=== PATIENT | female | born 1960 | race Caucasian/White ===

== ENCOUNTER 2023-01-20 12:24 | Day surgery (SDC) | payer BC ==
[~2023-01-20] VITALS: Ht 154.9 cm; Wt 63.1 kg
[~2023-01-20 12:24] MED LIST: COLESTID PO; ESTRADIOL (TWI1 EAC1; EUTHYROX88 MCG PO; METFORMIN ER1000 M2 PO; SERT50 PO; TRULICITY0.75 MG/01 SQ
[2023-01-20] MEDS ORDERED: OMEP20ER (12:43)
[2023-01-20 13:53] VITALS: BP 117/62
== END 2023-01-20 13:56 | disposition home or self-care (01) ==
LOC: ORSCSDS 12:24
PROVIDERS: Surgery
PROC: 0DJD8ZZ Inspection of Lower Intestinal Tract, Via Natural or Artificial Opening Endoscopic (ICD-10-PCS; principal; 2023-01-20 13:45)
DX: R19.7 Diarrhea, unspecified (principal); K58.0 Irritable bowel syndrome with diarrhea; Z79.899 Other long term (current) drug therapy
CPT/HCPCS: 82947; 88305; J2704; J7120

== ENCOUNTER → 2024-04-22 | Outpatient (CLI) | payer BC ==
[~2024-04-22] MED LIST changes: +OMEP20ER
[2024-04-22 15:50] LABS: Alanine Aminotransfer (ALT/SGP 40 U/L (12-78); Albumin, Blood 3.9 g/dL (3.4-5.0); Albumin/Globulin Ratio 1.2 (0.8-1.8); Alk Phos 123 U/L (50-136); Anion Gap 11 mmol/L (3-11); Aspartate Aminotrans (AST/SGOT 20 U/L (12-37); Bilirubin, Total 0.3 mg/dL (0.1-1.0); Blood Urea Nitrogen 11 mg/dL (8-24); Bun/Creatinine Ratio 28.6 (12.0-20.0); CHOL/HDL RATIO 5.4; CO2, Blood 27 mmol/L (21-32); Calcium, Blood 9.1 mg/dL (8.5-10.1); Chloride, Blood 103 mmol/L (98-108); Cholesterol 254 mg/dL (50-200); Creatinine, Blood 0.38 mg/dL (0.40-1.00); Globulin, Blood 3.2 g/dL (2.2-4.0); Glomerular Filtration Rate 113 (60-); Glucose, Blood 140 mg/dL (70-99); HDL Cholesterol 47 mg/dL (>39); LDL/HDL RATIO 3.2; Low Density Lipoprotein Chol 150 mg/dL (0-110); Potassium, Blood 3.9 mmol/L (3.5-5.5); Sodium, Blood 137 mmol/L (136-145); Total Protein, Blood 7.1 g/dL (6.4-8.2); Triglycerides 285 mg/dL (30-160); Very Low Density Lipoprot Chol 57 mg/dL (6-32)
[2024-04-22 16:06] LABS: Creatinine, Urine Random 86.1 mg/dL (27.00-270.00); Microalb/Creat Ratio UR, Rand 11.847 mg/g (0.000-30.000); Microalbumin, Random Urine 10.2 mg/L (0.000-20.000)
== END ==
LOC: LAB 13:40 → LAB SHORT 13:40
PROVIDERS: Internal Medicine
DX: E11.69 Type 2 diabetes mellitus with other specified complication (principal); E03.9 Hypothyroidism, unspecified; E78.2 Mixed hyperlipidemia
CPT/HCPCS: 80053; 80061; 82043; 82570; 83036; 84443

== ENCOUNTER 2025-01-06 22:36 | Observation (INO) | payer BC ==
[~2025-01-06] VITALS: Ht 154.9 cm; Wt 67.9 kg
[2025-01-06] MEDS ORDERED: OXYC10TA19 PO (22:56)
[2025-01-06] MEDS ORDERED: TAMS.4ER PO (22:56)
[2025-01-06] MEDS ORDERED: IBUP200 PO (22:57)
[2025-01-06] MEDS ORDERED: COLE625 PO (22:57)
[2025-01-06] MEDS ORDERED: VITAMIN D5000 UNIT PO (22:57)
[2025-01-06] MEDS ORDERED: EUTHYROX88 MCG PO (22:57)
[2025-01-06] MEDS ORDERED: COENZYME Q-10200 M1 PO (22:57)
[2025-01-06] MEDS ORDERED: ACET325 PO (22:58)
[2025-01-06] MEDS ORDERED: LIVALO2 MG PO (22:59)
[2025-01-06 23:01] LABS: BASOPHILS ABSOLUTE AUTO 0.02 K/mm3 (0.00-0.23); BASOPHILS PERCENT AUTO 0 % (0-2); EOSINOPHILS ABSOLUTE AUTO 0.06 K/mm3 (0.00-0.68); EOSINOPHILS PERCENT AUTO 1 % (0-6); Hematocrit 27.5 % (33.0-51.0); Hemoglobin 9.4 g/dL (11.5-16.0); IMMATURE GRAN ABSOLUTE AUTO 0.05 K/mm3 (0.00-0.10); IMMATURE GRAN PERCENT AUTO 1 % (0-1); LYMPHOCYTES ABSOLUTE AUTO 1.43 K/mm3 (0.84-5.20); LYMPHOCYTES PERCENT AUTO 14 % (21-46); MONOCYTES ABSOLUTE AUTO 0.63 K/mm3 (0.16-1.47); MONOCYTES PERCENT AUTO 6 % (4-13); Mean Corpuscular HGB Conc 34.2 g/dL (31.5-36.5); Mean Corpuscular Volume 86 fL (80-100); NEUTROPHILS ABSOLUTE AUTO 8.16 K/mm3 (1.96-9.15); NEUTROPHILS PERCENT AUTO 79 % (41-73); NRBC ABSOLUTE 0.00 K/mm3 (0.00-0.02); NRBC Auto 0.0 /100 WBC (0.0-0.2); Platelet Count 226 K/mm3 (150-400); RDW Coefficient Variation 12.5 % (11.7-14.2); RDW Standard Deviation 39.5 fL (35.1-46.3)
[2025-01-06 23:25] LABS: Alanine Aminotransfer (ALT/SGP 21.0 U/L (12-78); Albumin, Blood 2.9 g/dL (3.4-5.0); Albumin/Globulin Ratio 0.8 (0.8-1.8); Anion Gap 9.0 mmol/L (3-11); Aspartate Aminotrans (AST/SGOT 25.0 U/L (12-37); Bilirubin, Total 0.4 mg/dL (0.1-1.0); Blood Urea Nitrogen 13.0 mg/dL (8-24); CO2, Blood 26.0 mmol/L (21-32); Calcium, Blood 8.8 mg/dL (8.5-10.1); Chloride, Blood 103.0 mmol/L (98-108); Creatinine, Blood 0.76 mg/dL (0.40-1.00); Globulin, Blood 3.6 g/dL (2.2-4.0); Glucose, Blood 215.0 mg/dL (70-99); Potassium, Blood 4.1 mmol/L (3.5-5.5); Sodium, Blood 134.0 mmol/L (136-145); Total Protein, Blood 6.5 g/dL (6.4-8.2)
[2025-01-07 00:48] LABS: Hematocrit 24.7 % (33.0-51.0); Hemoglobin 8.3 g/dL (11.5-16.0)
[2025-01-07] MEDS ORDERED: NS 1,000 ML IV SCH (02:30)
[2025-01-07] MEDS ORDERED: FLU VACC TS2025-26(6MOS UP)/PF 45 MCG/0.5 ML SYRINGE IM SCH (03:15)
[2025-01-07 04:26] VITALS: BP 174/85
[2025-01-07 04:53] LABS: BASOPHILS ABSOLUTE AUTO 0.03 K/mm3 (0.00-0.23); BASOPHILS PERCENT AUTO 0 % (0-2); EOSINOPHILS ABSOLUTE AUTO 0.10 K/mm3 (0.00-0.68); EOSINOPHILS PERCENT AUTO 1 % (0-6); Hematocrit 27.1 % (33.0-51.0); Hemoglobin 9.1 g/dL (11.5-16.0); IMMATURE GRAN ABSOLUTE AUTO 0.03 K/mm3 (0.00-0.10); IMMATURE GRAN PERCENT AUTO 0 % (0-1); LYMPHOCYTES ABSOLUTE AUTO 1.20 K/mm3 (0.84-5.20); LYMPHOCYTES PERCENT AUTO 16 % (21-46); MONOCYTES ABSOLUTE AUTO 0.56 K/mm3 (0.16-1.47); MONOCYTES PERCENT AUTO 8 % (4-13); Mean Corpuscular HGB Conc 33.6 g/dL (31.5-36.5); Mean Corpuscular Volume 89 fL (80-100); NEUTROPHILS ABSOLUTE AUTO 5.55 K/mm3 (1.96-9.15); NEUTROPHILS PERCENT AUTO 74 % (41-73); NRBC ABSOLUTE 0.00 K/mm3 (0.00-0.02); NRBC Auto 0.0 /100 WBC (0.0-0.2); Platelet Count 222 K/mm3 (150-400); RDW Coefficient Variation 12.8 % (11.7-14.2); RDW Standard Deviation 40.9 fL (35.1-46.3)
[2025-01-07] MEDS ORDERED: FentaNYL Citrate 50 MCG/ML 2 ML Injection IV PRN (05:25)
--- NOTE | 2025-01-07 05:31 | NUR ---
PATIENT IS A NEW ADMIT FROM THE ED. STAND BY ASSIST TRANSFER. ON 2L O2 NC AND RA BASELINE. DENIES CHEST PAIN AND N/V. SOB W/EXERTION. TELE MONITOR NSR 93. MARIAH PRESENT ON ADMIT FROM RECENT SURGERY. HOSPITALIST DR GALEANO IN TO SEE PATIENT AND PLACED VERBAL ORDER FOR FENTANYL 25-50 MCG FOR PELVIC/BACK PAIN AND IV LASIX 40 MG NOW AND DAILY. ECHO ORDER WAS PREVIOUSLY PLACED. ORIENTED TO ROOM AND CALL LIGHT SYSTEM. REPORTS WANTS TO REST AT THIS TIME. WARM BLANKETS PROVIDED. WCTM.
[2025-01-07 06:03] LABS: Alanine Aminotransfer (ALT/SGP 18.0 U/L (12-78); Albumin, Blood 2.9 g/dL (3.4-5.0); Albumin/Globulin Ratio 0.9 (0.8-1.8); Anion Gap 8.0 mmol/L (3-11); Aspartate Aminotrans (AST/SGOT 14.0 U/L (12-37); Bilirubin, Total 0.4 mg/dL (0.1-1.0); Blood Urea Nitrogen 11.0 mg/dL (8-24); CO2, Blood 30.0 mmol/L (21-32); Calcium, Blood 8.5 mg/dL (8.5-10.1); Chloride, Blood 104.0 mmol/L (98-108); Creatinine, Blood 0.84 mg/dL (0.40-1.00); Globulin, Blood 3.2 g/dL (2.2-4.0); Glucose, Blood 153.0 mg/dL (70-99); Potassium, Blood 3.9 mmol/L (3.5-5.5); Sodium, Blood 138.0 mmol/L (136-145); Total Protein, Blood 6.1 g/dL (6.4-8.2)
[2025-01-07] MEDS ORDERED: OxyCODONE 5 mg/Acetamin 325 mg TABLET PO PRN (08:35)
[2025-01-07] MEDS ORDERED: Enoxaparin 40 MG/0.4 ML SYR SC SCH (09:00)
[2025-01-07 11:40] VITALS: BP 137/65
[2025-01-07] MEDS ORDERED: OXYC10TA19 PO (13:05)
[2025-01-07] MEDS ORDERED: LASIX20 M2 PO (13:06)
[2025-01-07 15:57] VITALS: BP 139/59
--- NOTE | 2025-01-07 18:08 | NUR ---
SHIFT SUMMARY; PT A/OX4, PLEASANT, AND SBA W/ AMBULATION. PT MEDICATED PER EMAR FOR PAIN. PT HAS BEEN ON 1 L O2 NC, STATING IN THE MID 90S. PT UTILIZING HEATING PAD TO HELP W/ PAIN WELL. PT ON TELE SR AT 96 BPM. VSS. BED IN LOW POSITION W/ CALL LIGHT IN REACH.
--- NOTE | 2025-01-07 18:27 | NUR ---
THIS OIL SEAL ASSEMBLER HAS REVIEWED AND AGREES WITH ALL NOTES AND ASSESSMENTS BY CHAPITO HAYES.
[2025-01-07 20:03] VITALS: BP 139/64
[2025-01-07] MEDS ORDERED: Insulin Human Lispro 100 Units/ML 3ML Syringe SC SCH (21:00)
[2025-01-07] MEDS ORDERED: Polyethylene Glycol 3350 17 gm PO PRN (21:30)
[2025-01-07 23:29] VITALS: BP 149/73
[2025-01-08 03:57] VITALS: BP 148/83
--- NOTE | 2025-01-08 04:03 | NUR ---
SHIFT SUMMARY PATIENT HAD NO ACUTE CHANGES. ALERT ORIENTED AND ONE ASSIST TO BR. ON 1L O2 NC STATING MID 90'S. TRY ROOM AIR AND STATING 88-90%. REPORTED GAS AND ALSO REQUESTED MIRALAX. HOSPITALIST DR GONZALEZ ORDERED SIMETHOCONE 80 MG, MIRALAX, AND AN INCENTIVE SPIROMETER PER PATIENT REQUEST. REPORTED PELVIC PAIN X TWO AND PERCOCET 5/325 MG GIVEN PER EVENT. DENIES CHEST PAIN AND N/V. VSS/AFEBRILE. TELE MONITOR SR 85. CALL LIGHT IN REACH. BED IN LOWEST POSITION. WILL CONTINUE TO MONITOR UNTIL DAY SHIFT NURSE ASSUMES CARE.
[2025-01-08 05:25] LABS: Albumin, Blood 2.8 g/dL (3.4-5.0); Anion Gap 6 mmol/L (3-11); Blood Urea Nitrogen 13 mg/dL (8-24); CO2, Blood 32 mmol/L (21-32); Calcium, Blood 8.6 mg/dL (8.5-10.1); Chloride, Blood 99 mmol/L (98-108); Creatinine, Blood 0.70 mg/dL (0.40-1.00); Glucose, Blood 155 mg/dL (70-99); Phosphorus, Blood 3.9 mg/dL (2.5-4.9); Potassium, Blood 3.4 mmol/L (3.5-5.5); Sodium, Blood 134 mmol/L (136-145)
[2025-01-08 07:20] VITALS: BP 163/78
[2025-01-08] MEDS ORDERED: LOSA25 PO (11:50)
[2025-01-08] MEDS ORDERED: MIRALAX17 GM PO (11:51)
--- NOTE | 2025-01-08 13:11 | NUR ---
PT DISCHARGED HOME WITH FAMILY TO TRANSPORT.PT AOX4 AND COOPERATIVE OF ALL CARE.PACKET WAS REVIEWED AND EDUCATIONAL MATERIAL SENT.PT TREATED FOR PELVIC PAIN PER EMAR. [facility] BROUGHT O2 AND DROPPED OF PRIOR TO DISCHARGE. NO DISTRESS NOTED AND PT ESCORTED VIA WHEELCHAIR TO N ENTRANCE VIA WHEEL CHAIR.
== END 2025-01-08 13:09 | disposition home or self-care (01) ==
LOC: ER 22:36 → ERHOLD 22:37 → ER 22:37 → MEDS 22:38 → ERHOLD 01-07 03:10 → MEDS 01-07 03:10 → ERHOLD 01-07 03:10 → MEDS 01-07 04:21 → ENPENDDIS 01-07 11:27 → MEDS 01-08 09:45
PROVIDERS: Emergency Medicine; Internal Medicine; Student in an Organized Health Care Education/Training Program; ADMIT Internal Medicine
DX: J96.01 Acute respiratory failure with hypoxia (principal); I11.0 Hypertensive heart disease with heart failure; I50.31 Acute diastolic (congestive) heart failure; D64.9 Anemia, unspecified; J98.11 Atelectasis; G47.33 Obstructive sleep apnea (adult) (pediatric); E87.6 Hypokalemia; E87.1 Hypo-osmolality and hyponatremia; E11.9 Type 2 diabetes mellitus without complications; E03.9 Hypothyroidism, unspecified; E78.5 Hyperlipidemia, unspecified; F32.A Depression, unspecified; K58.9 Irritable bowel syndrome, unspecified; Z79.890 Hormone replacement therapy; Z79.85 Long-term (current) use of injectable non-insulin antidiabetic drugs; Z79.84 Long term (current) use of oral hypoglycemic drugs; Z79.899 Other long term (current) drug therapy; Z90.710 Acquired absence of both cervix and uterus
CPT/HCPCS: 36415; 71046; 74177; 80053; 80069; 82947; 83880; 84145; 84484; 85014; 85018; 85025; 93005; 93010; 93306; 94760; 94761; 99285-25; A9270; G0378; J1650; J1938; J3010; J7030; Q9967

== ENCOUNTER 2025-01-19 10:18 | Emergency (ER) | payer BC ==
[~2025-01-19] VITALS: Ht 154.9 cm; Wt 63.5 kg
[~2025-01-19 10:18] MED LIST changes: +ACET325 PO; +COENZYME Q-10200 M1 PO; +COLE625 PO; +IBUP200 PO; +LASIX20 M2 PO; +LIVALO2 MG PO; +LOSA25 PO; +MIRALAX17 GM PO; +OXYC10TA19 PO; +TAMS.4ER PO; +VITAMIN D5000 UNIT PO
[2025-01-19 11:07] LABS: BASOPHILS ABSOLUTE AUTO 0.04 K/mm3 (0.00-0.23); BASOPHILS PERCENT AUTO 0 % (0-2); EOSINOPHILS ABSOLUTE AUTO 0.13 K/mm3 (0.00-0.68); EOSINOPHILS PERCENT AUTO 1 % (0-6); Hematocrit 31.3 % (33.0-51.0); Hemoglobin 10.5 g/dL (11.5-16.0); IMMATURE GRAN ABSOLUTE AUTO 0.06 K/mm3 (0.00-0.10); IMMATURE GRAN PERCENT AUTO 1 % (0-1); LYMPHOCYTES ABSOLUTE AUTO 2.04 K/mm3 (0.84-5.20); LYMPHOCYTES PERCENT AUTO 18 % (21-46); MONOCYTES ABSOLUTE AUTO 0.59 K/mm3 (0.16-1.47); MONOCYTES PERCENT AUTO 5 % (4-13); Mean Corpuscular HGB Conc 33.5 g/dL (31.5-36.5); Mean Corpuscular Volume 87 fL (80-100); NEUTROPHILS ABSOLUTE AUTO 8.64 K/mm3 (1.96-9.15); NEUTROPHILS PERCENT AUTO 75 % (41-73); NRBC ABSOLUTE 0.00 K/mm3 (0.00-0.02); NRBC Auto 0.0 /100 WBC (0.0-0.2); Platelet Count 461 K/mm3 (150-400); RDW Coefficient Variation 12.7 % (11.7-14.2); RDW Standard Deviation 40.3 fL (35.1-46.3)
[2025-01-19 11:27] LABS: Alanine Aminotransfer (ALT/SGP 26.0 U/L (12-78); Albumin, Blood 3.8 g/dL (3.4-5.0); Albumin/Globulin Ratio 0.9 (0.8-1.8); Anion Gap 9.0 mmol/L (3-11); Aspartate Aminotrans (AST/SGOT 12.0 U/L (12-37); Bilirubin, Total 0.2 mg/dL (0.1-1.0); Blood Urea Nitrogen 19.0 mg/dL (8-24); CO2, Blood 27.0 mmol/L (21-32); Calcium, Blood 9.5 mg/dL (8.5-10.1); Chloride, Blood 102.0 mmol/L (98-108); Creatinine, Blood 0.7 mg/dL (0.40-1.00); Globulin, Blood 4.1 g/dL (2.2-4.0); Glucose, Blood 147.0 mg/dL (70-99); Potassium, Blood 4.2 mmol/L (3.5-5.5); Sodium, Blood 134.0 mmol/L (136-145); Total Protein, Blood 7.9 g/dL (6.4-8.2)
[2025-01-19 14:40] VITALS: BP 120/80
== END 2025-01-19 14:49 | disposition home or self-care (01) ==
LOC: ER 10:18
PROVIDERS: Emergency Medicine
DX: I95.9 Hypotension, unspecified (principal); Z79.899 Other long term (current) drug therapy; Z90.710 Acquired absence of both cervix and uterus
CPT/HCPCS: 71046; 80053; 84484; 85025; 93005; 93010; 99284-25